=== PATIENT | female | born 1985 | race Caucasian/White ===

== ENCOUNTER 2018-10-26 19:46 | Inpatient (IN) | payer BC ==
[~2018-10-26 19:46] MED LIST: Bupivacaine/Epinephrine 0.25% 30 ML VIAL ONE
[2018-10-26 20:27] VITALS: BMI 26.6
[2018-10-26] MEDS ORDERED: Methylergonovine 0.2 MG/ML VIAL IM PRN (20:42)
[2018-10-26] MEDS ORDERED: Carboprost 250 MCG/ML AMP IM PRN (20:42)
[2018-10-26] MEDS ORDERED: Butorphanol Tartrate 1 MG/ML VIAL SLOW IVP PRN (20:42)
[2018-10-26] MEDS ORDERED: Diphenoxylate HCl/Atropine Tablet PO PRN (20:42)
[2018-10-26] MEDS ORDERED: Ibuprofen 800 MG TAB PO PRN (20:42)
[2018-10-26] MEDS ORDERED: Acetaminophen 500 MG TAB PO PRN (20:42)
[2018-10-26] MEDS ORDERED: HYDROcodone/Acetaminophen 5/325 mg Tablet PO PRN (20:42)
[2018-10-26] MEDS ORDERED: Lidocaine 1% (PF) 30 ML VIAL SC PRN (20:42)
[2018-10-26] MEDS ORDERED: Promethazine HCl 25 MG/ML VIAL IM PRN (20:42)
[2018-10-26] MEDS ORDERED: Ondansetron PF 4 MG/2 ML Vial IVP PRN (20:42)
--- NOTE | 2018-10-26 20:47 | PDOC.LDHP ---
Labor and Delivery H&P Chief complaint: loss of fluid HPI: 32 G1 @ 37w1d by LMP c/w 8 week CRL who presents with c/o LOF and in latent labor. Succenturiate placenta noted on sono, otherwise antepartum course benign. Current gestational age (weeks): 37 Due date: 11/15/18 Dating criteria: last menstrual period Grav: 1 Para: 0 Current complications: none Abnormal US findings: Yes (Succenturiate placenta) Past Medical History: Denies Current medications: pre- vitamins Previous surgical history: none Allergies/Adverse Reactions: Allergies Allergy/AdvReac Type Severity Reaction Status Date / Time No Known Allergies Allergy Verified 10/26/18 20:28 Social history: none - Physical Exam Vital signs reviewed and normal: yes Abdomen: gravid FHT: category 1 (150s, mod ro, +accels, no decels) Godwin contractions every: q4-5 min min - Vaginal Exam cm dilated: 3 (per RN exam ) Effacement: 50% Station: -2 - OB Labs Blood type: O RH: positive Antibody Screen: negative HIV: negative RPR: negative HEPSAg: negative 1 hour GCT: negative GBS: negative Urine drug screen: negative Rubella: immune Additional Labs: SS wnl - Assessment 37w1d IUP PROM, now in latent labor - Plan Plan: admit to L&D, labor augmentation if indicated, informed consent obtained, anesthesia consult for pain management
[2018-10-26 21:03] LABS: Hemoglobin 13.6 g/dL (12.0-16.0); Mean Corpuscular HGB CONC 32.8 g/dL (32.0-36.0); Mean Corpuscular Hemoglobin 29.4 pg (27.0-31.0); Mean Corpuscular Volume 89.6 fL (78.0-98.0); Mean Platelet Volume 7.6 fL (7.4-10.4); Platelet Count 184 thou/uL (130-400); RBC Distribution Width 13.3 % (11.5-14.5); Red Blood Cell (RBC) Count 4.63 mill/uL (4.20-5.40); White Blood Cell (WBC) Count 14.4 thou/uL (4.8-10.8)
[2018-10-26 21:42] LABS: Syphilis Antibody Nonreactive (Nonreactive); Syphilis Antibody Index 0.04 S/CO (<1.00 Non-Reactive)
[2018-10-26] MEDS ORDERED: NS w/ Oxytocin 10 units 500 ML IV SCH (22:00)
[2018-10-26 22:54] LABS: HBSAg Index 0.22 S/CO (0-0.99); HIV (1/2) Antibody/Antigen Non-Reactive (NonReactive); Hep B Surf Ag Non-Reactive S/CO (NonReactive)
[2018-10-26] MEDS: Lactated Ringer's 1,000 ML IV SCH (23:00)
[2018-10-27] MEDS ORDERED: Fentanyl 4 mcg/Bup 0.1% Cadd 100 ML ONE (00:50)
[2018-10-27] MEDS ORDERED: Eucerin (Mineral Oil/Petrolatum,White) 30 gm Jar TOP PRN (01:37)
[2018-10-27] MEDS ORDERED: Acetaminophen 325 MG TAB PO PRN (01:37)
[2018-10-27] MEDS ORDERED: ePHEDrine/0.9% NaCl/PF SYRINGE 50 mg/10 ml SLOW IVP PRN (01:37)
[2018-10-27] MEDS ORDERED: diphenhydrAMINE 50 MG/ML VIAL IVP PRN (01:37)
[2018-10-27] MEDS ORDERED: Lactated Ringer's 500 ML IV PRN (01:37)
[2018-10-27] MEDS ORDERED: Promethazine HCl 25 MG/ML VIAL IM PRN (01:37)
[2018-10-27] MEDS ORDERED: Ondansetron PF 4 MG/2 ML Vial IVP PRN ×2 (01:37→12:34)
[2018-10-27] MEDS ORDERED: Naloxone HCl 0.4 mg/ml Vial IVP PRN ×2 (01:37)
[2018-10-27] MEDS ORDERED: Fentanyl 4 mcg/Bupivacaine 0.1% Cassette 100 ML EPIDURAL SCH (01:45)
[2018-10-27] MEDS ORDERED: Communication Order-Pharmacy FS SCH (01:45)
[2018-10-27] MEDS: NS / Oxytocin 40 units/1000ml 1,000 ML IV PRN ×2 (08:43→09:59)
[2018-10-27] MEDS ORDERED: NS / Oxytocin 40 units/1000ml 1,000 ML IV SCH (12:34)
[2018-10-27] MEDS ORDERED: Lanolin Ointment 7 GM TUBE TOP PRN (12:34)
[2018-10-27] MEDS ORDERED: Milk Of Magnesia 30 ML UDCUP PO PRN (12:34)
[2018-10-27] MEDS ORDERED: Bisacodyl 10 MG SUPP PR PRN (12:34)
[2018-10-27] MEDS ORDERED: Benzocaine/Menthol 20-0.5% 60 ML CAN TOP PRN (12:34)
[2018-10-27] MEDS: Ibuprofen 800 MG TAB PO SCH (15:05)
[2018-10-27] MEDS: Ferrous Sulfate 325 MG TAB PO SCH (16:30)
[2018-10-27] MEDS: Lactated Ringer's 1,000 ML IV SCH (17:12)
--- NOTE | 2018-10-27 17:34 | OP ---
DATE OF PROCEDURE: 10/27/2018 The patient delivered a female on 10/27/2018 at 0827 hours this morning by an uncomplicated term spontaneous vaginal delivery at 37 weeks and 2 days gestation. Apgars were 8 and 9. weight was 2713 g. Placenta delivered spontaneously followed by Pitocin infusion. Quantitative blood loss 146 mL. There was a vaginal laceration repaired with 2-[address] Helms is the delivering physician. Counts were correct. There were no complications. Mother and baby both stable in the room in the immediate . Job ID: [id number]
[2018-10-28] MEDS: Ibuprofen 800 MG TAB PO SCH ×4 (06:53→20:14)
[2018-10-28] MEDS: Docusate Calcium (SURFAK) 240 MG CAP PO SCH ×3 (06:53→20:14)
--- NOTE | 2018-10-28 07:45 | PRG ---
DATE OF SERVICE: 10/28/2018 SUBJECTIVE: The patient is day 1, status post a term spontaneous vaginal delivery. She reports this morning that she is tolerating p.o., voiding on her own, having decreased lochia and good pain control. OBJECTIVE: VITAL SIGNS: Blood pressure this morning is 126/65, temperature 97.8, pulse of 80, and respiratory rate of 17. GENERAL: She appears to be in no acute distress. She is alert and oriented, cooperative and pleasant to interact with. HEENT: Head is normocephalic, atraumatic. Fundus is firm. EXTREMITIES: Nontender, nonedematous. ASSESSMENT AND PLAN: The patient is day 1, status post a term spontaneous vaginal delivery. We will continue in-house care with anticipation of discharge tomorrow. Job ID: [id number]
[2018-10-28 08:19] LABS: Hemoglobin 13.5 g/dL (12.0-16.0); Mean Corpuscular HGB CONC 32.1 g/dL (32.0-36.0); Mean Corpuscular Hemoglobin 29.1 pg (27.0-31.0); Mean Corpuscular Volume 90.6 fL (78.0-98.0); Mean Platelet Volume 7.5 fL (7.4-10.4); Platelet Count 176 thou/uL (130-400); RBC Distribution Width 13.5 % (11.5-14.5); Red Blood Cell (RBC) Count 4.62 mill/uL (4.20-5.40); White Blood Cell (WBC) Count 13.8 thou/uL (4.8-10.8)
[2018-10-28] MEDS ORDERED: Adacel (T-DAP) 0.5 ML SYRINGE IM ONE (09:00)
[2018-10-28] MEDS: Ferrous Sulfate 325 MG TAB PO SCH ×2 (09:52→18:22)
[2018-10-28] MEDS: Prenatal Vitamin 1 TAB PO SCH (09:52)
[2018-10-29] MEDS: Ibuprofen 800 MG TAB PO SCH ×3 (03:08→15:29)
[2018-10-29] MEDS: Prenatal Vitamin 1 TAB PO SCH (08:51)
[2018-10-29] MEDS: Ferrous Sulfate 325 MG TAB PO SCH ×2 (08:52→15:08)
[2018-10-29 09:19] VITALS: BP 121/81; TEMP 97.8
[2018-10-29] MEDS: Docusate Calcium (SURFAK) 240 MG CAP PO SCH (09:54)
== END 2018-10-29 17:15 | disposition home or self-care (01) | DRG 806 ==
LOC: L&D/OP 19:46 → L&D 21:09 → 3SW 10-27 15:34
PROVIDERS: ADMIT Obstetrics & Gynecology; ATTEND Obstetrics & Gynecology
PROC: 10E0XZZ Delivery of Products of Conception, External Approach (ICD-10-PCS; principal; 2018-10-27)
PROC: 0UQGXZZ Repair Vagina, External Approach (ICD-10-PCS; 2018-10-27)
DX: O43.193 Other malformation of placenta, third trimester (principal); O71.4 Obstetric high vaginal laceration alone; Z37.0 Single live birth; Z3A.37 37 weeks gestation of pregnancy
CPT/HCPCS: 36415; 51702; 85027; 86780; 86850; 86900; 86901; 87340; 87389; 99285; J2001